=== PATIENT | male | born 1930 | race Native Hawaiian/Other Pacific Islander ===

== ENCOUNTER 2016-07-12 16:52 | Emergency (ER) | payer OTHER ==
[~2016-07-12] VITALS: Ht 185.4 cm; Wt 841.9 kg
[~2016-07-12 16:52] MED LIST: ASA LO-DOSE81 MG OR; DIGO0.1230 PO; FURO40TA93 PO; GLIP5TAB65 PO; LISI10TA11 PO; LORTAB1 TAB PO; METF500T PO; METO50TA27 PO; MICRO-K10 MEQ OR; SIMV10TA PO; SIMV40TA57; TAMSULOSIN0.4 MG PO; TRAM50TA PO; WARF5TAB6 PO
[2016-07-12 16:55] VITALS: TEMP 98.2
[2016-07-12 17:36] VITALS: BP 169/90
== END 2016-07-12 17:40 | disposition home or self-care (01) ==
LOC: ED 16:52
DX: I10 Essential (primary) hypertension (principal)
CPT/HCPCS: 99282

== ENCOUNTER 2016-10-18 11:44 | Emergency (ER) | payer OTHER ==
[~2016-10-18] VITALS: Ht 188 cm; Wt 101.2 kg
[2016-10-18] MEDS ORDERED: HYDROCHLOROT12.5 M1 PO (12:08)
[2016-10-18 12:09] LABS: PLATELET COUNT 138 K/uL (142-355)
[2016-10-18 12:13] LABS: POTASSIUM 4.3 mmol/L (3.6-5.2)
[2016-10-18 12:27] LABS: PARTIAL THROMBOPLASTIN TIME 31.9 SECONDS (24.5-33.6)
[2016-10-18 12:45] VITALS: TEMP 97.8
[2016-10-18 13:00] VITALS: BP 158/89
== END 2016-10-18 13:30 | disposition home or self-care (01) ==
LOC: ED 11:44
PROVIDERS: Emergency Medicine
DX: G45.8 Other transient cerebral ischemic attacks and related syndromes (principal); R41.0 Disorientation, unspecified; R47.81 Slurred speech; I48.91 Unspecified atrial fibrillation
CPT/HCPCS: 36415; 80053; 81000; 82550; 82805; 83605; 84484; 85027; 85610; 85730; 96374; 99285

== ENCOUNTER 2016-10-18 13:51 | Outpatient (CLI) | payer OTHER ==
[~2016-10-18 13:51] MED LIST changes: +HYDROCHLOROT12.5 M1 PO
== END 2016-10-18 15:09 | disposition short-term general hospital (02) ==
LOC: AMB 13:51
DX: G45.8 Other transient cerebral ischemic attacks and related syndromes (principal); R41.0 Disorientation, unspecified; R47.81 Slurred speech; I48.91 Unspecified atrial fibrillation
CPT/HCPCS: A0425; A0427

== ENCOUNTER 2017-01-14 09:21 | Outpatient (CLI) | payer OTHER ==
[2017-01-14 10:06] LABS: POTASSIUM 3.1 mmol/L (3.6-5.2); SODIUM 136 mmol/L (136-145)
== END 2017-01-14 10:25 | disposition home or self-care (01) ==
LOC: LABW 09:21
PROVIDERS: Internal Medicine
DX: I25.10 Atherosclerotic heart disease of native coronary artery without angina pectoris (principal); E11.9 Type 2 diabetes mellitus without complications; E78.4 Other hyperlipidemia; I48.91 Unspecified atrial fibrillation
CPT/HCPCS: 36415; 80053; 80061; 81000; 82043; 82570; 83036; 84443

== ENCOUNTER 2017-07-30 09:35 | Outpatient (CLI) | payer OTHER ==
[~2017-07-30 09:35] MED LIST changes: +ELIQUIS5 MG PO
[2017-07-30 11:03] LABS: PLATELET COUNT 126 K/uL (142-355)
[2017-07-30 11:39] LABS: POTASSIUM 4.4 mmol/L (3.6-5.2)
== END 2017-07-30 19:55 | disposition home or self-care (01) ==
LOC: RAD 09:35 → LABW 09:35
PROVIDERS: Internal Medicine
DX: E11.9 Type 2 diabetes mellitus without complications (principal); I73.89 Other specified peripheral vascular diseases; R82.99 Other abnormal findings in urine
CPT/HCPCS: 36415; 80053; 80061; 81000; 83036; 84439; 84443; 85027; 87086; 87088; Q9963

== ENCOUNTER 2017-09-19 20:18 | Observation (INO) | payer OTHER ==
[~2017-09-19] VITALS: Ht 185.4 cm; Wt 80.0 kg
[2017-09-19] MEDS ORDERED: PANTOPRAZOLE 40MG TA PO (20:38)
[2017-09-19 20:39] VITALS: BP 145/63; TEMP 98.3
[2017-09-19 20:58] LABS: PLATELET COUNT 124 K/uL (142-355)
[2017-09-19 21:07] LABS: POTASSIUM 4.2 mmol/L (3.6-5.2)
[2017-09-19 21:16] LABS: PARTIAL THROMBOPLASTIN TIME 29.6 SECONDS (24.5-33.6)
[2017-09-20 01:13] VITALS: BP 172/86; TEMP 98.6; Ht 185.4 cm; Wt 80.0 kg
[2017-09-20 04:00] VITALS: BP 166/81; TEMP 98.2
[2017-09-20 07:45] VITALS: BP 148/76; TEMP 97.8
[2017-09-20 12:00] VITALS: BP 152/79; TEMP 98.1
== END 2017-09-20 16:35 | disposition home or self-care (01) ==
LOC: ED 20:18 → MED/SURG 23:24
PROVIDERS: Specialist; ADMIT Internal Medicine
DX: R41.82 Altered mental status, unspecified (principal); G45.8 Other transient cerebral ischemic attacks and related syndromes; I25.10 Atherosclerotic heart disease of native coronary artery without angina pectoris; E11.9 Type 2 diabetes mellitus without complications; I48.2 Chronic atrial fibrillation; I10 Essential (primary) hypertension; E83.42 Hypomagnesemia; E88.09 Other disorders of plasma-protein metabolism, not elsewhere classified
CPT/HCPCS: 36415; 80053; 81000; 82550; 82553; 83735; 83880; 84100; 84484; 85002; 85027; 85379; 85610; 85730; 93005; 99220; 99283; G0378; J3475

== ENCOUNTER 2017-10-02 12:54 | Outpatient (CLI) | payer OTHER ==
[~2017-10-02 12:54] MED LIST changes: +PANTOPRAZOLE 40MG TA PO
== END 2017-10-02 21:41 | disposition home or self-care (01) ==
LOC: LAB 12:54
DX: T14.8XXA Other injury of unspecified body region, initial encounter (principal); W57.XXXA Bitten or stung by nonvenomous insect and other nonvenomous arthropods, initial encounter
CPT/HCPCS: 36415; 86618; 87070; 87205

== ENCOUNTER 2017-10-17 13:41 | Outpatient (CLI) | payer OTHER | END 2017-10-17 23:37 | disposition home or self-care (01) | LOC: LABW 13:41 | DX: T14.8XXA Other injury of unspecified body region, initial encounter (principal); W57.XXXA Bitten or stung by nonvenomous insect and other nonvenomous arthropods, initial encounter | CPT/HCPCS: 36415; 86618 ==

== ENCOUNTER 2017-12-10 13:28 | Outpatient (CLI) | payer OTHER | END 2017-12-10 19:10 | disposition home or self-care (01) | LOC: MRI 13:28 | DX: R26.81 Unsteadiness on feet (principal); M79.605 Pain in left leg; M79.604 Pain in right leg ==

== ENCOUNTER 2018-02-05 16:23 | Emergency (ER) | payer OTHER ==
[~2018-02-05] VITALS: Ht 185.4 cm; Wt 79.4 kg
[2018-02-05 16:26] VITALS: TEMP 98.8
[2018-02-05 17:05] VITALS: BP 138/70
== END 2018-02-05 17:08 | disposition home or self-care (01) ==
LOC: ED 16:23
DX: I10 Essential (primary) hypertension (principal)
CPT/HCPCS: 99281

== ENCOUNTER 2018-02-07 09:18 | Outpatient (CLI) | payer OTHER ==
[2018-02-07 09:41] LABS: PLATELET COUNT 118 K/uL (142-355)
[2018-02-07 10:48] LABS: POTASSIUM 4.2 mmol/L (3.6-5.2)
== END 2018-02-07 23:24 | disposition home or self-care (01) ==
LOC: LABW 09:18
PROVIDERS: Internal Medicine
DX: E11.9 Type 2 diabetes mellitus without complications (principal); I48.91 Unspecified atrial fibrillation
CPT/HCPCS: 36415; 80053; 80061; 80162; 81000; 82043; 82570; 83036; 84439; 84443; 85027

== ENCOUNTER 2018-05-04 14:24 | Outpatient (CLI) | payer OTHER | END 2018-05-04 15:44 | disposition short-term general hospital (02) | LOC: AMB 14:24 | DX: I48.2 Chronic atrial fibrillation (principal); J18.8 Other pneumonia, unspecified organism; E11.22 Type 2 diabetes mellitus with diabetic chronic kidney disease; I12.9 Hypertensive chronic kidney disease with stage 1 through stage 4 chronic kidney disease, or unspecified chronic kidney disease; N18.3 Chronic kidney disease, stage 3 (moderate); E86.0 Dehydration; I25.10 Atherosclerotic heart disease of native coronary artery without angina pectoris; E78.49 Other hyperlipidemia; N40.0 Benign prostatic hyperplasia without lower urinary tract symptoms; R06.02 Shortness of breath; R74.8 Abnormal levels of other serum enzymes; R11.2 Nausea with vomiting, unspecified; R53.1 Weakness | CPT/HCPCS: A0425; A0427 ==

== ENCOUNTER 2018-08-07 04:20 | Inpatient (IN) | payer OTHER ==
[~2018-08-07] VITALS: Ht 185.4 cm; Wt 77.7 kg
[2018-08-07] VITALS (22 sets, daily range): BP systolic 152–197; BP diastolic 65–157; TEMP 97.7–101.1; Ht 185.4 cm; Wt 77.7 kg
[2018-08-07 04:47] LABS: PLATELET COUNT 175 K/uL (142-355)
[2018-08-07 05:22] LABS: POTASSIUM 4.3 mmol/L (3.6-5.2)
[2018-08-07] MEDS ORDERED: CARV6.25 PO (06:59)
[2018-08-07] MEDS ORDERED: NEURONTIN 100M100 MG PO (06:59)
[2018-08-07 13:49] LABS: POTASSIUM 4.2 mmol/L (3.6-5.2)
[2018-08-08] VITALS (27 sets, daily range): BP systolic 136–1661; BP diastolic 69–93; TEMP 98.5–101
[2018-08-08 06:58] LABS: PLATELET COUNT 108 K/uL (142-355)
[2018-08-08 17:12] LABS: PLATELET COUNT 94 K/uL (142-355)
[2018-08-09] VITALS (22 sets, daily range): BP systolic 144–198; BP diastolic 65–96; TEMP 97.7–98.8
[2018-08-09 07:44] LABS: PLATELET COUNT 101 K/uL (142-355)
[2018-08-09 07:54] LABS: POTASSIUM 3.8 mmol/L (3.6-5.2)
[2018-08-10] VITALS (21 sets, daily range): BP systolic 150–188; BP diastolic 70–96; TEMP 97.7–98.8
[2018-08-10 05:00] LABS: PLATELET COUNT 101 K/uL (142-355)
[2018-08-10 05:18] LABS: POTASSIUM 3.4 mmol/L (3.6-5.2)
[2018-08-11] VITALS (13 sets, daily range): BP systolic 153–186; BP diastolic 77–94; TEMP 97.7–98.7
[2018-08-11 06:01] LABS: PLATELET COUNT 121 K/uL (142-355)
[2018-08-11 06:37] LABS: POTASSIUM 3.9 mmol/L (3.6-5.2)
[2018-08-12 00:14] VITALS: BP 183/92; TEMP 98.3
[2018-08-12 04:00] VITALS: BP 182/84; TEMP 97.8
[2018-08-12 08:00] VITALS: BP 168/94; TEMP 96.4
[2018-08-12 12:00] VITALS: BP 179/94; TEMP 98.1
[2018-08-12 16:00] VITALS: BP 176/100; TEMP 98.7
[2018-08-12 20:00] VITALS: BP 181/95; TEMP 98.6
[2018-08-13 06:25] LABS: PLATELET COUNT 110 K/uL (142-355)
[2018-08-13 06:30] LABS: POTASSIUM 3.6 mmol/L (3.6-5.2)
[2018-08-13 08:00] VITALS: BP 149/75; TEMP 97.3
[2018-08-13 12:00] VITALS: BP 122/48; BP 132/69; TEMP 98; TEMP 98.3
[2018-08-13 16:00] VITALS: BP 148/77; TEMP 97.1
[2018-08-13 20:00] VITALS: BP 141/66; TEMP 99
[2018-08-14] VITALS: BP 166/87; TEMP 99
[2018-08-14 03:58] VITALS: BP 166/88; TEMP 98.9
[2018-08-14 08:00] VITALS: BP 176/95; TEMP 97.9
[2018-08-14 12:20] VITALS: BP 132/73; TEMP 96.8
[2018-08-14 16:00] VITALS: BP 178/84; TEMP 98.1
[2018-08-14 20:00] VITALS: BP 147/68; TEMP 98
[2018-08-15] VITALS: BP 157/82; TEMP 99.2
[2018-08-15 04:00] VITALS: BP 173/94; TEMP 98.8
[2018-08-15 08:00] VITALS: BP 166/89; TEMP 97.7
[2018-08-15 08:10] VITALS: BP 166/89; TEMP 97.7
== END 2018-08-15 11:15 | disposition swing bed (61) | DRG 152 ==
LOC: ED 04:20 → MED/SURG 06:00 → ICU 10:14 → MED/SURG 10:14
PROVIDERS: Internal Medicine; ADMIT Emergency Medicine
DX: H70.002 Acute mastoiditis without complications, left ear (principal); G92 Toxic encephalopathy; N39.0 Urinary tract infection, site not specified; K21.9 Gastro-esophageal reflux disease without esophagitis; I48.91 Unspecified atrial fibrillation; N40.0 Benign prostatic hyperplasia without lower urinary tract symptoms; E11.42 Type 2 diabetes mellitus with diabetic polyneuropathy; I12.9 Hypertensive chronic kidney disease with stage 1 through stage 4 chronic kidney disease, or unspecified chronic kidney disease; E11.22 Type 2 diabetes mellitus with diabetic chronic kidney disease; N18.3 Chronic kidney disease, stage 3 (moderate); I69.320 Aphasia following cerebral infarction; I69.391 Dysphagia following cerebral infarction; R13.12 Dysphagia, oropharyngeal phase; I51.7 Cardiomegaly; I25.10 Atherosclerotic heart disease of native coronary artery without angina pectoris
CPT/HCPCS: 36415; 51702; 80048; 80053; 80162; 81000; 82140; 82550; 82553; 83735; 83880; 84484; 85027; 85379; 85730; 87040; 87502; 93005; 96374; 99284; J0456; J0696; J1650; J2405; J3490

== ENCOUNTER 2018-08-15 11:15 | Inpatient (IN) | payer OTHER ==
[~2018-08-15] VITALS: Ht 185.4 cm; Wt 80.9 kg
[~2018-08-15 11:15] MED LIST changes: +CARV6.25 PO; +NEURONTIN 100M100 MG PO
[2018-08-15 13:32] VITALS: BP 166/89; TEMP 97.7; Ht 185.4 cm; Wt 80.9 kg
[2018-08-15 15:55] LABS: PLATELET COUNT 158 K/uL (142-355)
[2018-08-15 16:09] LABS: POTASSIUM 4.1 mmol/L (3.6-5.2)
[2018-08-15 20:05] VITALS: BP 129/64; TEMP 97.6
[2018-08-16 10:00] VITALS: BP 173/84; TEMP 98.1
[2018-08-16 20:00] VITALS: BP 127/68; TEMP 97.9
[2018-08-17 08:00] VITALS: BP 146/74; TEMP 98.1
[2018-08-17 20:00] VITALS: BP 133/69; TEMP 97.4
[2018-08-18 20:00] VITALS: BP 129/63; TEMP 98.6
[2018-08-19 08:00] VITALS: BP 99/60; TEMP 98.3
[2018-08-19 20:00] VITALS: BP 126/59; TEMP 98.5
[2018-08-20 08:00] VITALS: BP 121/60; BP 126/51; TEMP 97.9
[2018-08-20 20:00] VITALS: BP 133/58; TEMP 97.5
[2018-08-21 05:45] LABS: PLATELET COUNT 174 K/uL (142-355)
[2018-08-21 06:02] LABS: POTASSIUM 2.6 mmol/L (3.6-5.2)
[2018-08-21 08:00] VITALS: BP 141/68; TEMP 97.8
[2018-08-21 20:00] VITALS: BP 148/50; TEMP 97.4
[2018-08-22 08:00] VITALS: BP 137/71; TEMP 98.4
[2018-08-22 20:00] VITALS: BP 108/60; TEMP 97.6
[2018-08-23 07:12] LABS: POTASSIUM 2.9 mmol/L (3.6-5.2)
[2018-08-23 08:00] VITALS: BP 155/76; TEMP 97.7
[2018-08-23 20:00] VITALS: BP 154/64; TEMP 97.7
[2018-08-24 08:00] VITALS: BP 166/81; TEMP 97.6
[2018-08-24 20:00] VITALS: BP 178/85; TEMP 97.9
[2018-08-25 08:00] VITALS: BP 167/94; TEMP 97.8
[2018-08-25 20:00] VITALS: BP 129/69; TEMP 97.8
[2018-08-26 08:00] VITALS: BP 182/91; TEMP 97.5
[2018-08-26 20:00] VITALS: BP 127/65; TEMP 98.1
[2018-08-27 08:09] VITALS: BP 153/69; TEMP 97.7
[2018-08-27 20:00] VITALS: BP 161/77; TEMP 98.2
[2018-08-28 08:00] VITALS: BP 177/84; TEMP 98.6
== END 2018-08-28 13:55 | disposition home or self-care (01) | DRG 555 ==
LOC: MED/SURG 11:15
PROVIDERS: ADMIT Internal Medicine
DX: M62.81 Muscle weakness (generalized) (principal); G92 Toxic encephalopathy; A04.72 Enterocolitis due to Clostridium difficile, not specified as recurrent; H70.002 Acute mastoiditis without complications, left ear; F03.90 Unspecified dementia, unspecified severity, without behavioral disturbance, psychotic disturbance, mood disturbance, and anxiety; I48.91 Unspecified atrial fibrillation; R41.82 Altered mental status, unspecified; Z86.73 Personal history of transient ischemic attack (TIA), and cerebral infarction without residual deficits; I12.9 Hypertensive chronic kidney disease with stage 1 through stage 4 chronic kidney disease, or unspecified chronic kidney disease; E11.42 Type 2 diabetes mellitus with diabetic polyneuropathy; N18.3 Chronic kidney disease, stage 3 (moderate)
CPT/HCPCS: 80048; 80053; 82272; 83630; 83735; 85027; 87015; 87045; 87324; 87328; 87329; 87449; 87507; 87899; J3480

== ENCOUNTER 2018-09-26 11:51 | Outpatient (CLI) | payer OTHER ==
[2018-09-27] MEDS ORDERED: METF500T PO (04:01)
[2018-09-27] MEDS ORDERED: GLIP10TA55 PO (04:03)
[2018-09-27] MEDS ORDERED: NEURONTIN 100M100 MG PO ×2 (04:08→04:10)
== END 2018-09-26 11:58 | disposition short-term general hospital (02) ==
LOC: AMB 11:51
DX: R53.1 Weakness (principal); I95.89 Other hypotension
CPT/HCPCS: A0425; A0427

== ENCOUNTER 2018-09-26 12:02 | Emergency (ER) | payer OTHER ==
[~2018-09-26] VITALS: Ht 185.4 cm; Wt 80.7 kg
[2018-09-26 12:12] VITALS: TEMP 98.6
[2018-09-26 12:40] LABS: PLATELET COUNT 107 K/uL (142-355); POTASSIUM 4.6 mmol/L (3.6-5.2); SODIUM 140 mmol/L (136-145)
[2018-09-26 15:19] VITALS: BP 131/73
[2018-09-27] MEDS ORDERED: METF500T PO (04:01)
[2018-09-27] MEDS ORDERED: GLIP10TA55 PO (04:03)
[2018-09-27] MEDS ORDERED: NEURONTIN 100M100 MG PO ×2 (04:08→04:10)
== END 2018-09-26 15:45 | disposition home or self-care (01) ==
LOC: ED 12:02
PROVIDERS: Emergency Medicine
DX: E86.0 Dehydration (principal); E11.65 Type 2 diabetes mellitus with hyperglycemia; I95.2 Hypotension due to drugs; I48.91 Unspecified atrial fibrillation; T46.4X5A Adverse effect of angiotensin-converting-enzyme inhibitors, initial encounter; Y92.89 Other specified places as the place of occurrence of the external cause
CPT/HCPCS: 80053; 82550; 84484; 85027; 93005; 99284

== ENCOUNTER 2018-09-30 17:38 | Inpatient (IN) | payer OTHER ==
[~2018-09-30] VITALS: Ht 185.4 cm; Wt 80.5 kg
[2018-09-30] VITALS (7 sets, daily range): BP systolic 144–176; BP diastolic 80–99; TEMP 97.8–98.8; Ht 185.4 cm; Wt 80.5 kg
[~2018-09-30 17:38] MED LIST changes: +GLIP10TA55 PO
[2018-09-30 21:19] LABS: PLATELET COUNT 97 K/uL (142-355)
[2018-09-30 21:32] LABS: POTASSIUM 4.9 mmol/L (3.6-5.2)
[2018-10-01] VITALS (7 sets, daily range): BP systolic 149–176; BP diastolic 78–97; TEMP 97.5–98.8
[2018-10-01] MEDS ORDERED: K-TAB20 MEQ PO (01:10)
[2018-10-01] MEDS ORDERED: FURO20TA67 PO (01:11)
[2018-10-02 04:00] VITALS: BP 129/68; TEMP 98.2
[2018-10-02 04:45] LABS: PLATELET COUNT 93 K/uL (142-355)
[2018-10-02 05:06] LABS: POTASSIUM 3.6 mmol/L (3.6-5.2)
[2018-10-02 08:00] VITALS: BP 140/77; TEMP 97.9
== END 2018-10-02 09:55 | disposition home or self-care (01) | DRG 291 ==
LOC: ED 17:38 → MED/SURG 22:20
PROVIDERS: Internal Medicine; ADMIT Internal Medicine
DX: I13.0 Hypertensive heart and chronic kidney disease with heart failure and stage 1 through stage 4 chronic kidney disease, or unspecified chronic kidney disease (principal); I50.31 Acute diastolic (congestive) heart failure; E11.22 Type 2 diabetes mellitus with diabetic chronic kidney disease; N18.3 Chronic kidney disease, stage 3 (moderate); I48.2 Chronic atrial fibrillation; Z79.01 Long term (current) use of anticoagulants; I25.10 Atherosclerotic heart disease of native coronary artery without angina pectoris; J06.9 Acute upper respiratory infection, unspecified
CPT/HCPCS: 36415; 80048; 80053; 81000; 82550; 83735; 83880; 84484; 85027; 87502; 93005; 93306; 99283; J1940; J3475

== ENCOUNTER 2018-11-10 10:05 | Outpatient (CLI) | payer OTHER ==
[~2018-11-10 10:05] MED LIST changes: +FURO20TA67 PO; +K-TAB20 MEQ PO
[2018-11-10 10:28] LABS: PLATELET COUNT 107 K/uL (142-355)
[2018-11-10 10:50] LABS: POTASSIUM 4.9 mmol/L (3.6-5.2)
== END 2018-11-10 19:17 | disposition home or self-care (01) ==
LOC: LABW 10:05
PROVIDERS: Internal Medicine
DX: E11.9 Type 2 diabetes mellitus without complications (principal); I10 Essential (primary) hypertension; E78.49 Other hyperlipidemia; I48.91 Unspecified atrial fibrillation
CPT/HCPCS: 36415; 80053; 80061; 81000; 82043; 82570; 83036; 84439; 84443; 85027

== ENCOUNTER 2019-06-02 09:54 | Outpatient (CLI) | payer OTHER ==
[2019-06-02 11:24] LABS: PLATELET COUNT 122 K/uL (142-355)
[2019-06-02 11:49] LABS: POTASSIUM 4.9 mmol/L (3.6-5.2)
== END 2019-06-02 20:09 | disposition home or self-care (01) ==
LOC: LABW 09:54 → RAD 09:54 → LABW 20:09
PROVIDERS: Nurse Practitioner Family
DX: I69.920 Aphasia following unspecified cerebrovascular disease (principal); I48.91 Unspecified atrial fibrillation; E11.9 Type 2 diabetes mellitus without complications
CPT/HCPCS: 36415; 80053; 80061; 81000; 82043; 82570; 83036; 84439; 84443; 85027

== ENCOUNTER 2019-12-09 10:49 | Outpatient (CLI) | payer OTHER ==
[2019-12-09 12:28] LABS: PLATELET COUNT 108 K/uL (142-355)
[2019-12-09 12:54] LABS: POTASSIUM 4.6 mmol/L (3.6-5.2)
== END 2019-12-09 21:32 | disposition home or self-care (01) ==
LOC: LAB 10:49
PROVIDERS: Internal Medicine
DX: E11.9 Type 2 diabetes mellitus without complications (principal)
CPT/HCPCS: 80053; 80061; 83036; 84439; 84443; 85027

== ENCOUNTER 2020-05-24 17:36 | Outpatient (CLI) | payer OTHER ==
[2020-05-24 18:43] LABS: PLATELET COUNT 100 K/uL (142-355)
[2020-05-24 19:08] LABS: POTASSIUM 5.1 mmol/L (3.6-5.2)
== END 2020-05-24 18:57 | disposition home or self-care (01) ==
LOC: LAB 17:36
PROVIDERS: ATTEND Internal Medicine
DX: E11.9 Type 2 diabetes mellitus without complications (principal); I50.22 Chronic systolic (congestive) heart failure; I25.10 Atherosclerotic heart disease of native coronary artery without angina pectoris
CPT/HCPCS: 80053; 80061; 81000; 82043; 82570; 83036; 83880; 84439; 84443; 85007; 85027

== ENCOUNTER 2020-12-06 14:18 | Emergency (ER) | payer OTHER ==
[~2020-12-06] VITALS: Ht 182.9 cm; Wt 81.6 kg
[2020-12-06 14:18] VITALS: TEMP 98.9
[2020-12-06 15:26] LABS: PLATELET COUNT 140 K/uL (142-355)
[2020-12-06 15:30] LABS: POTASSIUM 5.3 mmol/L (3.6-5.2)
[2020-12-06 23:00] VITALS: BP 131/80
== END 2020-12-07 00:05 | disposition short-term general hospital (02) ==
LOC: ED 14:27
PROVIDERS: Family Medicine
DX: K60.2 Anal fissure, unspecified (principal); K92.2 Gastrointestinal hemorrhage, unspecified; Z11.52 Encounter for screening for COVID-19
CPT/HCPCS: 36415; 80053; 85027; 87635; 96360; 99284; U0003